=== PATIENT | female | born 1955 | race Caucasian/White ===

== ENCOUNTER 2017-10-23 09:30 | Emergency (ER) | payer SELFPAY ==
[2017-10-23 10:13] VITALS: BP 169/83
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
== END 2017-10-23 10:30 | disposition home or self-care (01) ==
LOC: ED 09:30
DX: F41.9 Anxiety disorder, unspecified (principal); I10 Essential (primary) hypertension; K21.9 Gastro-esophageal reflux disease without esophagitis; G62.9 Polyneuropathy, unspecified; Z76.0 Encounter for issue of repeat prescription
CPT/HCPCS: 99283